=== PATIENT | male | born 1955 | race Caucasian/White ===

== ENCOUNTER 2019-06-23 21:41 | Observation (INO) | payer MEDICAID, MEDICARE ==
[2019-06-23] MEDS ORDERED: ASPIRIN 325 MG TABLET ONE (22:06)
[2019-06-23] MEDS ORDERED: NITROGLYCERIN 0.4 MG SL TAB SL ONE (22:06)
[2019-06-23 22:09] LABS: BASOPHILS % (AUTO) 0.8 % (0.0-5.0); HEMATOCRIT 44.4 % (42-54); LYMPHOCYTES % (AUTO) 15.2 % (21.0-51.0); MEAN CORPUSCULAR VOLUME 102.8 fL (79-99); NUCLEATED RED BLOOD CELLS 0.1 % (0.0-0.19); PLATELET COUNT (AUTO) 232 K/uL (130-400); RED BLOOD CELL COUNT(AUTO) 4.32 MIL/uL (4.50-6.20); RED CELL DISTRIBUTION WIDTH 13.1 % (11.0-15.5); WHITE BLOOD COUNT (AUTO) 5.5 K/uL (4.8-10.8)
[2019-06-23 22:16] LABS: CREATININE 1.2 mg/dL (0.5-1.5); POTASSIUM 3.9 mmol/L (3.5-5.1)
[2019-06-23 22:23] LABS: ALBUMIN 3.9 g/dL (3.5-5.0); BILIRUBIN,TOTAL 0.2 mg/dL (0.2-1.0); PARTIAL THROMBOPLASTIN TIME 27.3 SEC (26.3-35.5); PROTHROMBIN TIME 10.5 SEC (9.6-11.6); TOTAL PROTEIN, SERUM 7.8 g/dL (6.0-8.3)
[2019-06-23] MEDS ORDERED: NITROGLYCERIN 1GM/1 INCH PACKET TD ONE (22:27)
[2019-06-24] MEDS ORDERED: HYDRALAZINE HCL 20 MG/ML VIAL IV PRN (00:15)
[2019-06-24] MEDS ORDERED: ACETAMINOPHEN 325 MG TAB PO PRN ×2 (00:15)
[2019-06-24] MEDS ORDERED: LACTULOSE 20 GM/30 ML UDCUP PO PRN (00:15)
[2019-06-24] MEDS ORDERED: ONDANSETRON HCL 4 MG/2 ML VIAL IV PRN (00:15)
[2019-06-24] MEDS ORDERED: NITROGLYCERIN 0.4 MG SL TAB SL PRN (00:15)
[2019-06-24 01:14] LABS: CHOLESTEROL 169 mg/dL (<200); HDL CHOLESTEROL 122 mg/dL (29-71); LDL DIRECT 98 mg/dL (0-99); TRIGLYCERIDES 107 mg/dL (30-200)
[2019-06-24 07:16] LABS: AMPHET/METH SCREEN,URINE NEGATIVE (NEGATIVE); BARBITURATE SCREEN, URINE NEGATIVE (NEGATIVE); BENZODIAZEPINES SCREEN,URINE NEGATIVE (NEGATIVE); CANNABINOID SCREEN,URINE POSITIVE (NEGATIVE); COCAINE SCREEN,URINE NEGATIVE (NEGATIVE); OPIATE SCREEN,URINE NEGATIVE (NEGATIVE); PHENCYCLIDINE SCREEN,URINE NEGATIVE (NEGATIVE)
[2019-06-24] MEDS ORDERED: ASPIRIN 81MG TAB.CHEW ONE (08:29)
[2019-06-24] MEDS ORDERED: FAMOTIDINE 20MG TAB 20 MG TAB ONE (08:30)
[2019-06-24] MEDS ORDERED: ENOXAPARIN SODIUM 40 MG/0.4 ML SYRINGE SQ ONE (08:30)
[2019-06-24] MEDS ORDERED: METOPROLOL TARTRATE 25 MG TAB ONE (08:30)
[2019-06-24] MEDS ORDERED: ASPIRIN 81 MG EC TAB PO SCH (09:00)
[2019-06-24] MEDS ORDERED: METOPROLOL TARTRATE 25 MG TAB PO SCH (09:00)
[2019-06-24] MEDS ORDERED: FAMOTIDINE 20MG TAB 20 MG TAB PO SCH (09:00)
[2019-06-24] MEDS ORDERED: ENOXAPARIN SODIUM 40 MG/0.4 ML SYRINGE SQ SCH (09:00)
[2019-06-24] MEDS ORDERED: ACETAMINOPHEN 325 MG TAB ONE (09:18)
== END 2019-06-24 09:26 | disposition left against medical advice (07) ==
LOC: EDH 21:41 → EDHIP 06-24 00:14
PROVIDERS: ADMIT Internal Medicine; ATTEND Internal Medicine
DX: R07.89 Other chest pain (principal); I10 Essential (primary) hypertension; F17.210 Nicotine dependence, cigarettes, uncomplicated; Z85.46 Personal history of malignant neoplasm of prostate; Z79.82 Long term (current) use of aspirin; Z79.899 Other long term (current) drug therapy
CPT/HCPCS: 36415; 71045; 80053; 80061; 80305; 82550; 84484; 85025; 85610; 85730; 93005; 99284; G0378 ×9; J1650

== ENCOUNTER 2021-10-23 13:29 | Inpatient (IN) | payer MEDICARE ==
[~2021-10-23] VITALS: Ht 172.7 cm; Wt 90.1 kg
[2021-10-23] MEDS ORDERED: PANTOPRAZOLE 40 MG/VIAL IVP ONE (14:00)
[2021-10-23 14:04] LABS: BASOPHILS % (AUTO) 0.3 % (0.0-5.0); EOSINOPHILS % (AUTO) 0.6 % (0.0-8.0); HEMATOCRIT 37.2 % (42-54); LYMPHOCYTES % (AUTO) 16.3 % (21.0-51.0); MEAN CORPUSCULAR HEMOGLOBIN 31.5 pg (27.0-33.0); MEAN CORPUSCULAR HGB CONC 30.9 g/dL (32.0-36.0); MEAN CORPUSCULAR VOLUME 101.9 fL (79-99); MONOCYTES % (AUTO) 3.6 % (3.0-13.0); NEUTROPHILS % (AUTO) 78.8 % (40.0-77.0); PLATELET COUNT (AUTO) 341 K/uL (130-400); RED BLOOD CELL COUNT(AUTO) 3.65 MIL/uL (4.50-6.20); RED CELL DISTRIBUTION WIDTH 12.9 % (11.0-15.5); WHITE BLOOD COUNT (AUTO) 16.1 K/uL (4.8-10.8)
[2021-10-23 14:18] LABS: INR 1.12 (0.85-1.15); PROTHROMBIN TIME 12.1 SEC (9.6-11.6)
[2021-10-23 14:26] LABS: B-TYPE NATRIURETIC PEPTIDE 6 pg/mL (0-100)
[2021-10-23 14:28] LABS: ALBUMIN 3.7 g/dL (3.5-5.0); BILIRUBIN,TOTAL 0.2 mg/dL (0.2-1.0); CREATININE 1.1 mg/dL (0.5-1.5); POTASSIUM 4.5 mmol/L (3.5-5.1); TOTAL PROTEIN, SERUM 7.3 g/dL (6.0-8.3)
[2021-10-23] MEDS ORDERED: 0.9%NACL 1000ML 1,000 ML IV ONE (14:30)
[2021-10-23 14:32] LABS: APPEARANCE,URINE Clear (CLEAR); BILIRUBIN,URINE Negative (NEGATIVE); COLOR,URINE Yellow (YELLOW); GLUCOSE, URINE (UA) Negative (NEGATIVE); KETONES,URINE 15 mg/dL (NEGATIVE); LEUKOCYTE ESTERASE ,URINE Small (NEGATIVE); NITRATE,URINE Negative (NEGATIVE); OCCULT BLOOD,URINE Negative (NEGATIVE); PH,URINE 5.5 (5.0-8.0); PROTEIN,URINE POS 1+ mg/dL (NEGATIVE); UROBILINOGEN,URINE 0.2 mg/dL (0.2-1.0)
[2021-10-23 14:57] LABS: BACTERIA,URINE Few /HPF (None Seen); MUCUS,URINE Few LPF (None Seen); RBC,URINE 0-1 /HPF (0-1); SQUAMOUS EPITHELIAL CELL,UR Few /HPF (0-2)
[2021-10-23] MEDS ORDERED: IOHEXOL-350 75 ML VIAL IV ONE (15:04)
[2021-10-23] MEDS ORDERED: ACETAMINOPHEN 325 MG TAB PO PRN ×2 (15:30)
[2021-10-23] MEDS: 0.9%NACL 1000ML 1,000 ML IV SCH (15:35)
[2021-10-23 16:14] LABS: HEMOGLOBIN A1C 5.6 % (4.0-6.0)
[2021-10-23] MEDS: PANTOPRAZOLE 40MG INJ 80 MG in 0.9%NACL 100ML 100 ML IV SCH (16:38)
[2021-10-23] MEDS: CEFTRIAXONE 1G VIAL IVP SCH (16:49)
[2021-10-23 18:29] LABS: POTASSIUM 4.2 mmol/L (3.5-5.1)
[2021-10-23] MEDS: ONDANSETRON 4MG INJ IV PRN (20:04)
[2021-10-23] MEDS: MORPHINE 2 MG SYG IV PRN (20:04)
[2021-10-23 20:42] LABS: AMPHET/METH SCREEN,URINE NEGATIVE (NEGATIVE); BARBITURATE SCREEN, URINE NEGATIVE (NEGATIVE); BENZODIAZEPINES SCREEN,URINE NEGATIVE (NEGATIVE); CANNABINOID SCREEN,URINE POSITIVE (NEGATIVE); COCAINE SCREEN,URINE NEGATIVE (NEGATIVE); OPIATE SCREEN,URINE NEGATIVE (NEGATIVE); PHENCYCLIDINE SCREEN,URINE NEGATIVE (NEGATIVE)
[2021-10-23 21:46] VITALS: BP 140/71
[2021-10-23] MEDS ORDERED: DICL75TA5 PO (22:41)
[2021-10-23] MEDS ORDERED: LISI1TAB53 PO (22:41)
[2021-10-24] VITALS (25 sets, daily range): BP systolic 120–180; BP diastolic 69–118
[2021-10-24 00:27] LABS: HEMATOCRIT 28.9 % (42-54)
[2021-10-24] MEDS: PANTOPRAZOLE 40MG INJ 80 MG in 0.9%NACL 100ML 100 ML IV SCH ×3 (02:27→21:11)
[2021-10-24 06:56] LABS: BASOPHILS % (AUTO) 0.4 % (0.0-5.0); EOSINOPHILS % (AUTO) 0.8 % (0.0-8.0); HEMATOCRIT 27.6 % (42-54); LYMPHOCYTES % (AUTO) 12.9 % (21.0-51.0); MEAN CORPUSCULAR HEMOGLOBIN 32.5 pg (27.0-33.0); MEAN CORPUSCULAR HGB CONC 32.6 g/dL (32.0-36.0); MEAN CORPUSCULAR VOLUME 99.6 fL (79-99); MONOCYTES % (AUTO) 7.5 % (3.0-13.0); NEUTROPHILS % (AUTO) 78.2 % (40.0-77.0); PLATELET COUNT (AUTO) 262 K/uL (130-400); RED BLOOD CELL COUNT(AUTO) 2.77 MIL/uL (4.50-6.20); RED CELL DISTRIBUTION WIDTH 13.2 % (11.0-15.5); WHITE BLOOD COUNT (AUTO) 8.4 K/uL (4.8-10.8)
[2021-10-24 07:16] LABS: ALBUMIN 3.5 g/dL (3.5-5.0); BILIRUBIN,TOTAL 0.2 mg/dL (0.2-1.0); CREATININE 1.1 mg/dL (0.5-1.5); POTASSIUM 3.7 mmol/L (3.5-5.1); TOTAL PROTEIN, SERUM 6.6 g/dL (6.0-8.3)
[2021-10-24] MEDS ORDERED: LIDOCAINE PF 100MG/5ML (2%) SYRINGE 5ML ONE (11:47)
[2021-10-24] MEDS ORDERED: PROPOFOL 10 MG/ML 20ML VIAL IV ONE ×3 (11:47→12:09)
[2021-10-24] MEDS ORDERED: GLYCOPYRROLATE 1 MG/5 ML SYRINGE ONE (11:47)
[2021-10-24] MEDS ORDERED: MIDAZOLAM HCL 1 MG/ML 2ML VIAL ONE (11:47)
[2021-10-24] MEDS ORDERED: EPHEDRINE SULFATE 50 MG/ML AMPULE ONE (11:51)
[2021-10-24] MEDS ORDERED: EPINEPHRINE PF 1MG AMP ONE (11:51)
[2021-10-24] MEDS: 0.9%NACL 1000ML 1,000 ML IV SCH ×3 (12:13→22:58)
[2021-10-24] MEDS ORDERED: COMPOUND IV MISC 1 EACH IVSOLN MISC PRN (12:30)
[2021-10-24] MEDS: MORPHINE 2 MG SYG IV PRN (13:44)
[2021-10-24 14:07] LABS: HEMATOCRIT 27.4 % (42-54)
[2021-10-24] MEDS ORDERED: ENALAPRILAT DIHYDRATE 1.25MG/ML 1ML VIAL IV PRN (15:00)
[2021-10-24] MEDS ORDERED: LABETALOL 20MG VIAL IV PRN (15:00)
[2021-10-24] MEDS: CEFTRIAXONE 1G VIAL IVP SCH (16:22)
[2021-10-24] MEDS: ONDANSETRON 4MG INJ IV PRN (16:22)
[2021-10-24 20:52] LABS: HEMATOCRIT 23.7 % (42-54)
[2021-10-25 04:09] VITALS: BP 132/73
[2021-10-25] MEDS: PANTOPRAZOLE 40MG INJ 80 MG in 0.9%NACL 100ML 100 ML IV SCH ×2 (04:27→12:27)
[2021-10-25 07:00] VITALS: BP 133/88
[2021-10-25] MEDS: 0.9%NACL 1000ML 1,000 ML IV SCH ×3 (07:30→20:28)
[2021-10-25 11:00] VITALS: BP 124/80
[2021-10-25 12:22] LABS: ALBUMIN 3.7 g/dL (3.5-5.0); BILIRUBIN,TOTAL 0.4 mg/dL (0.2-1.0); CREATININE 0.9 mg/dL (0.5-1.5); POTASSIUM 3.7 mmol/L (3.5-5.1); TOTAL PROTEIN, SERUM 6.8 g/dL (6.0-8.3)
[2021-10-25 12:46] LABS: BASOPHILS % (AUTO) 0.5 % (0.0-5.0); EOSINOPHILS % (AUTO) 1.2 % (0.0-8.0); HEMATOCRIT 30.5 % (42-54); LYMPHOCYTES % (AUTO) 19.2 % (21.0-51.0); MEAN CORPUSCULAR HEMOGLOBIN 31.8 pg (27.0-33.0); MEAN CORPUSCULAR HGB CONC 32.8 g/dL (32.0-36.0); MEAN CORPUSCULAR VOLUME 97.1 fL (79-99); MONOCYTES % (AUTO) 8.2 % (3.0-13.0); NEUTROPHILS % (AUTO) 70.6 % (40.0-77.0); PLATELET COUNT (AUTO) 236 K/uL (130-400); RED BLOOD CELL COUNT(AUTO) 3.14 MIL/uL (4.50-6.20); RED CELL DISTRIBUTION WIDTH 15.6 % (11.0-15.5); WHITE BLOOD COUNT (AUTO) 6.6 K/uL (4.8-10.8)
[2021-10-25 16:00] VITALS: BP 129/72
[2021-10-25] MEDS: CEFTRIAXONE 1G VIAL IVP SCH (17:59)
[2021-10-25 20:16] VITALS: BP 122/70
[2021-10-25 20:50] LABS: HEMATOCRIT 28.8 % (42-54)
[2021-10-26 05:21] LABS: BASOPHILS % (AUTO) 0.4 % (0.0-5.0); EOSINOPHILS % (AUTO) 1.3 % (0.0-8.0); HEMATOCRIT 27.7 % (42-54); LYMPHOCYTES % (AUTO) 14.1 % (21.0-51.0); MEAN CORPUSCULAR HEMOGLOBIN 31.3 pg (27.0-33.0); MEAN CORPUSCULAR HGB CONC 32.5 g/dL (32.0-36.0); MEAN CORPUSCULAR VOLUME 96.2 fL (79-99); MONOCYTES % (AUTO) 9.2 % (3.0-13.0); NEUTROPHILS % (AUTO) 74.6 % (40.0-77.0); PLATELET COUNT (AUTO) 205 K/uL (130-400); RED BLOOD CELL COUNT(AUTO) 2.88 MIL/uL (4.50-6.20); RED CELL DISTRIBUTION WIDTH 15.6 % (11.0-15.5); WHITE BLOOD COUNT (AUTO) 6.7 K/uL (4.8-10.8)
[2021-10-26 05:27] VITALS: BP 157/93
[2021-10-26 05:40] LABS: ALBUMIN 3.5 g/dL (3.5-5.0); BILIRUBIN,TOTAL 0.3 mg/dL (0.2-1.0); CREATININE 0.9 mg/dL (0.5-1.5); POTASSIUM 3.3 mmol/L (3.5-5.1); TOTAL PROTEIN, SERUM 6.5 g/dL (6.0-8.3)
[2021-10-26 08:00] VITALS: BP 124/57
[2021-10-26] MEDS: PANTOPRAZOLE 40MG INJ 80 MG in 0.9%NACL 100ML 100 ML IV SCH ×2 (10:28→20:28)
[2021-10-26] MEDS ORDERED: POTASSIUM CHLORIDE 10% ELIXIR 20 MEQ/15 ML UDCUP PO PRN (11:30)
[2021-10-26] MEDS ORDERED: LIDOCAINE HCL-MPF 1% 2ML VIAL IV PRN (11:30)
[2021-10-26] MEDS ORDERED: POTASSIUM CHLORIDE 20MEQ/100ML 100 ML IV PRN (11:30)
[2021-10-26] MEDS ORDERED: POTASSIUM CHLORIDE 20 MEQ/100 ML BAG IV SCH (11:30)
[2021-10-26 12:00] VITALS: BP 153/90
[2021-10-26] MEDS ORDERED: POTASSIUM CHLORIDE 20MEQ/100ML 100 ML IV SCH (12:00)
[2021-10-26] MEDS: 0.9%NACL 1000ML 1,000 ML IV SCH ×2 (14:14→23:26)
[2021-10-26 16:00] VITALS: BP 158/81
[2021-10-26] MEDS: CEFTRIAXONE 1G VIAL IVP SCH (16:58)
[2021-10-26 17:13] LABS: HEMATOCRIT 31.8 % (42-54)
[2021-10-26 19:47] VITALS: BP 128/81
[2021-10-26] MEDS: KCL 20 MEQ ERTAB PO PRN ×2 (20:39→23:24)
[2021-10-26 23:34] VITALS: BP 158/89
[2021-10-27] MEDS: KCL 20 MEQ ERTAB PO PRN (01:59)
[2021-10-27 04:15] LABS: BASOPHILS % (AUTO) 0.4 % (0.0-5.0); EOSINOPHILS % (AUTO) 2.5 % (0.0-8.0); LYMPHOCYTES % (AUTO) 19.9 % (21.0-51.0); MEAN CORPUSCULAR HEMOGLOBIN 30.9 pg (27.0-33.0); MEAN CORPUSCULAR HGB CONC 32.4 g/dL (32.0-36.0); MEAN CORPUSCULAR VOLUME 95.4 fL (79-99); MONOCYTES % (AUTO) 10.3 % (3.0-13.0); NEUTROPHILS % (AUTO) 66.5 % (40.0-77.0); PLATELET COUNT (AUTO) 239 K/uL (130-400); RED BLOOD CELL COUNT(AUTO) 3.04 MIL/uL (4.50-6.20); RED CELL DISTRIBUTION WIDTH 14.9 % (11.0-15.5); WHITE BLOOD COUNT (AUTO) 5.5 K/uL (4.8-10.8)
[2021-10-27 04:17] VITALS: BP 152/91
[2021-10-27 04:34] LABS: ALBUMIN 3.4 g/dL (3.5-5.0); BILIRUBIN,TOTAL 0.3 mg/dL (0.2-1.0); CREATININE 0.9 mg/dL (0.5-1.5); POTASSIUM 3.7 mmol/L (3.5-5.1); TOTAL PROTEIN, SERUM 6.2 g/dL (6.0-8.3)
[2021-10-27 08:00] VITALS: BP 139/87
[2021-10-27] MEDS ORDERED: PANT40TA PO (08:28)
[2021-10-27 09:22] LABS: HEMATOCRIT 31.8 % (42-54)
[2021-10-27] MEDS: PANTOPRAZOLE 40MG INJ 80 MG in 0.9%NACL 100ML 100 ML IV SCH ×3 (09:49)
[2021-10-27] MEDS: 0.9%NACL 1000ML 1,000 ML IV SCH (09:50)
[2021-10-27 12:00] VITALS: BP 160/92
[2021-10-27 15:00] VITALS: BP 167/94
[2021-11-03] MEDS ORDERED: ACET-2079 PO (08:21)
== END 2021-10-27 16:30 | disposition home or self-care (01) | DRG 378 ==
LOC: EDH 13:29 → EDHIP 15:15 → 3DH 21:46 → 4BH 10-25 01:33
PROVIDERS: ADMIT Internal Medicine; ATTEND Internal Medicine
PROC: 0W3P8ZZ Control Bleeding in Gastrointestinal Tract, Via Natural or Artificial Opening Endoscopic (ICD-10-PCS; principal; 2021-10-24)
PROC: 30233N1 Transfusion of Nonautologous Red Blood Cells into Peripheral Vein, Percutaneous Approach (ICD-10-PCS; 2021-10-25)
DX: K26.4 Chronic or unspecified duodenal ulcer with hemorrhage (principal); D62 Acute posthemorrhagic anemia; I95.9 Hypotension, unspecified; I10 Essential (primary) hypertension; F17.210 Nicotine dependence, cigarettes, uncomplicated; G89.29 Other chronic pain; M25.551 Pain in right hip; Z20.822 Contact with and (suspected) exposure to COVID-19; Z85.46 Personal history of malignant neoplasm of prostate; Z90.49 Acquired absence of other specified parts of digestive tract; Z79.1 Long term (current) use of non-steroidal anti-inflammatories (NSAID); T39.395A Adverse effect of other nonsteroidal anti-inflammatory drugs [NSAID], initial encounter
CPT/HCPCS: 36415; 36430; 43255; 71045; 74177; 76705; 80048; 80053; 80305; 81001; 82270; 83036; 83880; 84484; 85014; 85018; 85025; 85610; 85651; 86850; 86900; 86901; 86923; 87635; 93005; 99291; C9113; G0378; J0171; J0696; J2001; J2250; J2405; J2704; J3480; J3490; J7030; P9016; Q9967

== ENCOUNTER 2021-11-03 07:29 | Emergency (ER) | payer MEDICARE ==
[~2021-11-03] VITALS: Ht 172.7 cm; Wt 93.0 kg
[~2021-11-03 07:29] MED LIST: LISI1TAB53 PO; PANT40TA PO
[2021-11-03] MEDS ORDERED: HYDROCODONE/ACETAMINOPHEN 10/325 MG TAB PO SCH (08:00)
[2021-11-03] MEDS ORDERED: ORPHENADRINE CITRATE 30 MG/ML ML IM SCH (08:00)
[2021-11-03] MEDS ORDERED: ACET1TAB25 PO (08:21)
[2021-11-03] MEDS ORDERED: META800T72 PO (08:21)
[2021-11-03 08:46] VITALS: BP 145/65
== END 2021-11-03 08:46 | disposition home or self-care (01) ==
LOC: EDH 07:29
DX: M54.2 Cervicalgia (principal); M62.838 Other muscle spasm; I10 Essential (primary) hypertension; Z90.49 Acquired absence of other specified parts of digestive tract; Z79.899 Other long term (current) drug therapy
CPT/HCPCS: 96372; 99283; J2360